=== PATIENT | female | born 1970 | race Caucasian/White ===

== ENCOUNTER 2019-02-02 08:10 | Inpatient (IN) | payer MEDICAID ==
[~2019-02-02] VITALS: Ht 165.1 cm; Wt 92.7 kg
[~2019-02-02 08:10] MED LIST: HYD25; NOR5 PO
[2019-02-02 09:16] LABS: BASOPHIL % 0.3 % (0-2); PLATELET COUNT 178 x10^3mcL (130-400)
[2019-02-02 09:21] LABS: RED CELL DISTRIBUTION WIDTH 19.9 % (11.5-14.5)
[2019-02-02 09:21] LABS: microscopic required? YES; urine erythrocyte 2+ (NEGATIVE)
[2019-02-02 09:26] LABS: CALCIUM 9.2 mg/dL (8.5-10.1); CARBON DIOXIDE 25.9 mmol/L (21-32); CHLORIDE SERUM 101 mmol/L (98-107); CREATININE SERUM 0.9 mg/dL (0.6-1.0); GFR1 > 60 mL/min; GLUCOSE SERUM 136 mg/dL (74-106); POTASSIUM SERUM 3.7 mmol/L (3.5-5.1); SODIUM SERUM 137 mmol/L (136-145)
[2019-02-02 09:39] LABS: T3 TOTAL 1.02 ng/mL
[2019-02-02 09:41] LABS: CK-MB 1.6 ng/mL (0-3.6); FREE T4 1.18 ng/dL (0.76-1.46); FREE THYROXINE INDEX 3.8 ug/dL (1.4-4.5); T4(THYROXINE) 12.3 ug/dL (4.7-13.3)
[2019-02-02 09:43] LABS: ALBUMIN 4.3 g/dL (3.4-5.0); ALKALINE PHOSPHATASE 117 U/L (46-116); ALT/SGPT 46 U/L (14-59); AST/SGOT 35 U/L (15-37); C REACTIVE PROTEIN 0.5 mg/dL (<=0.9); TOTAL PROTEIN, SERUM 8.5 g/dL (6.4-8.2)
[2019-02-02 11:20] LABS: ERYTHROCYTE SED RATE 25 mm/hr (0-20)
[2019-02-02 15:51] LABS: PHOSPHOROUS 3.3 mg/dL (2.5-4.9)
[2019-02-02 15:58] LABS: CHOLESTEROL/HDL RATIO 3.7
[2019-02-02 16:58] VITALS: BP 200/87
[2019-02-02 17:05] VITALS: Ht 165.1 cm; Wt 92.7 kg
[2019-02-02 20:35] VITALS: BP 181/81
[2019-02-02 22:16] VITALS: BP 160/89
[2019-02-03] VITALS (7 sets, daily range): BP systolic 126–186; BP diastolic 65–86
[2019-02-03 07:21] LABS: BASOPHIL % 0.2 % (0-2); PLATELET COUNT 167 x10^3mcL (130-400)
[2019-02-03 07:22] LABS: RED CELL DISTRIBUTION WIDTH 20.7 % (11.5-14.5)
[2019-02-03 08:21] LABS: CALCIUM 8.9 mg/dL (8.5-10.1); CHLORIDE SERUM 105 mmol/L (98-107); CREATININE SERUM 0.9 mg/dL (0.6-1.0); GFR1 > 60 mL/min; GLUCOSE SERUM 107 mg/dL (74-106); PHOSPHOROUS 4.3 mg/dL (2.5-4.9); POTASSIUM SERUM 3.7 mmol/L (3.5-5.1); SODIUM SERUM 143 mmol/L (136-145)
[2019-02-04 04:27] VITALS: BP 153/73
[2019-02-04 08:30] VITALS: BP 167/76
[2019-02-04 10:36] VITALS: BP 167/76
[2019-02-04 12:00] VITALS: BP 136/63
[2019-02-04] MEDS ORDERED: FLO4 PO (12:06)
[2019-02-04] MEDS ORDERED: TRA100 PO (12:07)
[2019-02-04] MEDS ORDERED: ZES20 PO (12:07)
[2019-02-04 12:54] VITALS: BP 167/76
== END 2019-02-04 15:45 | disposition home or self-care (01) | DRG 263 ==
LOC: ED 08:10 → DU 15:14
PROVIDERS: Specialist; Surgery; ADMIT Internal Medicine
PROC: 0WQF4ZZ Repair Abdominal Wall, Percutaneous Endoscopic Approach (ICD-10-PCS; 2019-02-03)
PROC: 0FT44ZZ Resection of Gallbladder, Percutaneous Endoscopic Approach (ICD-10-PCS; principal; 2019-02-03 09:15)
DX: K80.20 Calculus of gallbladder without cholecystitis without obstruction (principal); N17.0 Acute kidney failure with tubular necrosis; N13.30 Unspecified hydronephrosis; K43.2 Incisional hernia without obstruction or gangrene; N39.0 Urinary tract infection, site not specified; I16.0 Hypertensive urgency; I10 Essential (primary) hypertension; D64.9 Anemia, unspecified; E78.5 Hyperlipidemia, unspecified; Z68.36 Body mass index [BMI] 36.0-36.9, adult; Z91.14 Patient's other noncompliance with medication regimen; Z88.0 Allergy status to penicillin; Z98.51 Tubal ligation status
CPT/HCPCS: 83880; 84439; 94150; J0360; J0696; J1170; J1885; J1956; J2270; J2405; J3010; J3490; J7030; Q0092